=== PATIENT | male | born 1975 | race Hispanic/Latino ===

== ENCOUNTER 2022-05-26 12:36 | Emergency (ER) | payer BC, SELFPAY ==
[2022-05-26] MEDS ORDERED: Diazepam 5 MG TAB ONE (13:43)
[2022-05-26] MEDS ORDERED: Dexamethasone 10 MG/ML VIAL ONE (13:43)
[2022-05-26] MEDS ORDERED: Acetaminophen 500 MG TAB ONE (15:09)
[2022-05-26] MEDS ORDERED: traMADol HCl 50 MG TAB ONE (15:10)
[2022-05-26] MEDS ORDERED: Lidocaine 5% Patch TD SCH (15:30)
[2022-05-27] MEDS ORDERED: Transdermal Patch Removal TOP SCH (03:30)
== END 2022-05-26 16:32 | disposition home or self-care (01) ==
LOC: CSHERS 12:36
DX: M54.50 Low back pain, unspecified (principal)
CPT/HCPCS: 99283; J1100